=== PATIENT | female | born 1955 | race Caucasian/White ===

== ENCOUNTER 2023-12-12 15:51 | Emergency (ER) | payer OTHER, SELFPAY ==
[2023-12-12 15:52] VITALS: BP 193/78
[2023-12-12 17:11] VITALS: BP 180/69
--- NOTE | 2023-12-12 17:18 | ED.MUSCINJ ---
HPI-Injury
General
Chief Complaint: Musculo-Skeletal Complaint
Time Seen by Provider: 12/12/23 16:19
Travel History
Have you had any contact with someone who has COVID-19?: No
Do you have any symptoms of coronavirus? Fever > 100 degrees, chills, cough, shortness of breath, sore throat, loss of taste or smell, muscle aches, or headache?: No
History of Present Illness-Injury
Initial Injury comments:
68-year-old female with history of high blood pressure and hyperlipidemia presenting to the emergency department for right hand injury. Patient reports 3 days ago she injured her right hand in a refrigerator door, with subsequent swelling and
bruising. She reports that the bruising has overall improved, however still having some swelling. She is on a blood thinner for A-fib, which brought her to the emergency department for evaluation. Denies numbness or tingling. Denies issues with
movement to the hand denies additional injuries. Denies additional acute medical complaints.
Phy Exam
Physical Exam
Physical Exam:
GENERAL: Alert , in no apparent distress
EYE: Extraocular movements intact
NECK: Supple, no significant adenopathy.
ENT: o/p clr, mmm.
CARDIAC: Regular rate .
LUNGS: no acute respiratory distress
ABDOMEN: No distention
NEUROLOGICAL: Alert and oriented, no focal neuro deficits
SKIN: Warm and dry, skin intact.
MUSCULOSKELETAL: Ecchymosis to the anterior aspect of the hand with mild tenderness to the second and third metacarpal bones. Range of motion grossly intact. Minimal swelling. Sensation intact no erythema.
PSYCH: Normal and appropriate interaction.
Injury Course
Orders/Labs/Results
Orders:
Orders
12/12/23 15:55
Hand, Right 3 View [CR Hand - Right Min 3 Views] Urgent
Comment:
Reason For Exam: right hand swelling hit hand on frig on Tues
MDM/Problems Addressed
MDM/Problems Addressed:
68-year-old female with hypertension and hyperlipidemia, A-fib on Eliquis presenting to the emergency department for right hand pain after slamming her hand in refrigerator door 2 days ago. Vital signs significant for high blood pressure.
On exam, patient well-appearing. Examination consistent with ecchymosis, mild edema. Range of motion grossly intact. Sensation intact. No snuffbox tenderness. Suspect musculoskeletal component. No suspicion for significant hematoma. No
neurovascular compromise. X-ray obtained, no fracture or malalignment. Patient offered splinting, declined. Otherwise feel stable for discharge with supportive therapy. Return precautions discussed and patient verbalized understanding
*Critical Care Note
Total Time (30-74mins, 75-104mins- exclusive of procedures): Not Applicable
ED Attending Note
-
Portions of this chart may have been created with voice recognition software.� Occasional wrong word or��sound alike� substitutions may have occurred due to the inherent limitations of voice recognition software.
Discharge Plan
Departure
Patient Disposition: Home (Routine Discharge)
Date of Disposition: 12/12/23
Time of Disposition: 17:18
Patient with high blood pressure during this ER visit?: Yes
Discharge Problem:
Hand injury, Traumatic ecchymosis of right hand
Instructions: Contusion (DC), Hand Pain (DC), BLOOD PRESSURE
Referrals:
UNKNOWN - PT DOES,NOT KNOW [Family Provider] -
Activity Restrictions/Additional Instructions:
Please follow-up closely with your primary care doctor. Return with any increased pain, numbness or tingling to your hand, development of fever, redness to the hand, development of chest pain or difficulty breathing, decreased mobility to the hand
Interventions
Interventions:
*Risk Screen - Suicide Last Done: 12/12/23 16:41
*General Assessment Last Done: 12/12/23 16:41
*Neglect/Abuse Screening Last Done: 12/12/23 16:41
ED- Fall Risk Assessment Last Done: 12/12/23 16:41
*ED COVID-19 Vaccine History Last Done: 12/12/23 15:52
*Nursing Disposition Last Done: 12/12/23 17:26
ED-Musculoskeletal Assessment Last Done: 12/12/23 16:41
Discharge Date and Time
Discharge Date/Time: 12/12/23 17:32
Print Language: UPPER SORBIAN
== END 2023-12-12 17:32 | disposition home or self-care (01) ==
LOC: EMR 15:51
PROVIDERS: EMERGENCY PHYSICIAN Student in an Organized Health Care Education/Training Program
DX: S60.221A Contusion of right hand, initial encounter (principal); W22.09XA Striking against other stationary object, initial encounter; M79.89 Other specified soft tissue disorders; I10 Essential (primary) hypertension; E78.5 Hyperlipidemia, unspecified; I48.91 Unspecified atrial fibrillation; Z79.01 Long term (current) use of anticoagulants
CPT/HCPCS: 99283; 73130